=== PATIENT | female | born 1995 | race Two or more races ===

== ENCOUNTER 2016-11-16 11:18 | Inpatient (IN) | payer OTHER ==
[~2016-11-16] VITALS: Ht 162.6 cm; Wt 70.9 kg
[~2016-11-16 11:18] MED LIST: OXYTOCIN 30 UNITS/LR 500 ML BAG IV ONE; PREN-39 PO
[2016-11-16] MEDS ORDERED: LACTATED RINGER'S 1,000 ML IV SCH (11:35)
[2016-11-16 11:40] VITALS: BP 134/81; PULSE 75; RESP 16; Ht 162.6 cm; Wt 70.9 kg
[2016-11-16] MEDS ORDERED: METHYLERGONOVINE 0.2 MG INJ IM PRN ×2 (12:00→20:30)
[2016-11-16] MEDS ORDERED: MISOPROSTOL 200 MCG TAB PR PRN ×2 (12:00→20:30)
[2016-11-16] MEDS ORDERED: OXYTOCIN 30 UNITS/LR 500 ML IV PRN ×2 (12:00→20:30)
[2016-11-16] MEDS ORDERED: CARBOPROST 250 MCG INJ IM PRN ×2 (12:00→20:30)
[2016-11-16] MEDS ORDERED: CEFAZOLIN 2 GM/50 ML (PMX) 50 ML IVPB SCH (12:00)
[2016-11-16 12:19] LABS: ADD SCAN DIFF NO
[2016-11-16 12:43] LABS: BASOPHILS % 0.3 % (0.0-2.0); EOSINOPHILS # 0.1 10^3/ul (0.0-0.5); EOSINOPHILS % 0.4 % (0.0-7.0); HEMATOCRIT 37.9 % (37.0-47.0); HEMOGLOBIN 12.3 g/dl (12.0-16.0); INR 0.97; LYMPHOCYTES # 2.2 10^3/ul (0.8-2.9); MEAN CORPUSCULAR HEMOGLOBIN 29.3 pg (29.0-33.0); MEAN CORPUSCULAR HGB CONC 32.5 g/dl (32.0-37.0); MEAN CORPUSCULAR VOLUME 90.2 fl (82.0-101.0); MEAN PLATELET VOLUME 12.4 fl (7.4-10.4); MONOCYTE # 0.8 10^3/ul (0.3-0.9); MONOCYTES % 7.4 % (0.0-11.0); NEUTROPHILS % 71.2 % (39.0-77.0); PLATELET COUNT 164 10^3/UL (140-415); PROTIME 12.9 Sec (12.2-14.2); RED CELL DISTRIBUTION WIDTH 14.6 % (11.5-14.5); WHITE BLOOD COUNT 11.2 10^3/ul (4.8-10.8)
[2016-11-16 12:48] LABS: PARTIAL THROMBOPLASTIN TIME 26.5 Sec (25.0-35.0)
[2016-11-16] MEDS ORDERED: ONDANSETRON 4 MG INJ IV STA (14:20)
[2016-11-16] MEDS ORDERED: CITRIC ACID/SODIUM CITRATE 15 ML CUP PO ONE (14:30)
[2016-11-16] MEDS ORDERED: DEXAMETHASONE 4 MG/ML 1 ML INJ ONE (15:30)
[2016-11-16] MEDS ORDERED: OXYTOCIN 10 UNIT INJ ONE (15:30)
[2016-11-16] MEDS ORDERED: METOCLOPRAMIDE 10 MG INJ ONE (15:30)
[2016-11-16] MEDS ORDERED: KETOROLAC 30 MG INJ ONE (15:30)
[2016-11-16] MEDS ORDERED: morphine SULFATE/PF (10 MG/10 ML) INJ ONE (15:30)
[2016-11-16] MEDS ORDERED: ONDANSETRON 4 MG INJ ONE (15:30)
[2016-11-16] MEDS ORDERED: PHENYLephrine (100 MCG/ML) 5ML SYG ONE (15:30)
[2016-11-16] MEDS ORDERED: NALBUPHINE HCL (10 MG/1 ML) INJ IV PRN (16:00)
[2016-11-16] MEDS ORDERED: ONDANSETRON 4 MG INJ IV PRN (16:00)
[2016-11-16] MEDS ORDERED: morphine 4 MG/ML VIAL IV PRN (16:00)
[2016-11-16] MEDS ORDERED: HYDROCODONE/APAP (5/325) TAB PO PRN (16:00)
[2016-11-16] MEDS ORDERED: HYDROmorphONE 1 MG/ML SYG IV PRN ×2 (16:00)
[2016-11-16] MEDS ORDERED: ACETAMINOPHEN 500 MG TAB PO PRN (16:00)
[2016-11-16] MEDS ORDERED: morphine 2 MG INJ IV PRN (16:00)
[2016-11-16] MEDS ORDERED: NALOXONE (0.4 MG/ML) INJ IV PRN (16:00)
[2016-11-16] MEDS ORDERED: DIPHENHYDRAMINE 50 MG INJ IV PRN (16:00)
[2016-11-16] MEDS: OXYTOCIN 30 UNITS/LR 500 ML IV SCH ×4 (17:02→23:43)
--- NOTE | 2016-11-16 19:04 | HP ---
Date/Time of Note Date/Time of Note DATE: 11/16/16 TIME: 18:40 OB - History Hx of Present Free Text/Dictation 21 years old white female T2 PT is SAB baby L admitted to [facility] at 39 weeks with history of previous in early labor being prepared to undergo repeat section This patient has been under the care of the [facility] medical group course was not complicated with gestational diabetes -induced hypertension or any other serious surgical or medical condition [employer]AM[employer]ER history [facility] at the age 11 history of2 previous section , first baby had multiple congenital anomaly did not survive and delivery was performed by section her following normal baby delivered by repeat , recent she has been seen multiple occasion by the perinatologist old reports indicated normal baby and normal Chief Complaint: 39 weeks history of previous Estimated Due Date: Nov 23, 2016 : 4 Para: 2 Spontaneous : 1 Ultrasounds: Normal mid trimester US Obstetrical Complications: None Medical Complications: None Past Family/Social History * Past Medical, Surgical, Family and Obstetric Histories reviewed from chart. Rubella: immune RPR/VDRL: Negative GBS Status: Negative OB Admission Exam Vital Signs Vital Signs Vital Signs Date Time Temp Pulse Resp B/P Pulse Ox O2 Delivery O2 Flow Rate FiO2 11/16/16 11:40 98.0 75 16 134/81 Physical Exam HEENT: WNL Heart: Rhythm Normal Lungs: Clear, Equal Abdomen: WNL Extremities: Normal Reflexes: Normal Effacement: 0% Membranes: Intact Heart Rate: 120's Decelerations: No Decelerations Varibility: Moderate Contractions on Admission: >10 Minutes Apart Intensity: Mild Last 72 hours Lab Results CBC & BMP 11/16/16 12:00 OB Assessment/Plan Reason for admission: other (39 weeks history of 2 previous ,) Plan: Section, Other (Repeat ) BISHOP LUCAS MD November 16, 2016 18:58
[2016-11-16] MEDS: KETOROLAC 30 MG INJ IV PRN (19:46)
[2016-11-16] MEDS ORDERED: ACETAMINOPHEN/CODEINE #3 TAB PO PRN ×2 (20:30)
[2016-11-16] MEDS ORDERED: LANOLIN 7 GM TUBE TOP PRN (20:30)
[2016-11-16] MEDS ORDERED: CEFAZOLIN 1 GM/50 ML (PMX) 50 ML IVPB SCH (20:30)
[2016-11-16] MEDS ORDERED: OXYCODONE/ACETAMINOPHEN (5/325) TAB PO PRN ×2 (20:30)
--- NOTE | 2016-11-16 20:50 | OPR ---
DATE OF OPERATION: 11/16/2016 PREOPERATIVE DIAGNOSES: 1. Intrauterine at 39 weeks' gestation. 2. History of 2 previous sections. POSTOPERATIVE DIAGNOSES: 1. Intrauterine at 39 weeks' gestation. 2. History of 2 previous sections. OPERATION PERFORMED: Repeat transverse low-cervical section. SURGEON: Bishop Lucas MD AUTOMOTIVE WORKER: Fabricio Donald MD ANESTHESIA: Spinal. ANESTHESIOLOGIST: Julito De Los Santos MD FINDINGS: Live baby boy, 8 and 9. Baby weighed 3030 grams, equal to 6 pounds 11 ounces. DETAILS OF THE PROCEDURE: Under satisfactory spinal anesthesia, the patient was prepped and draped, and placed in supine position, tilted to the left. Pfannenstiel incision was made, carried through the subcutaneous tissue. Bleeders brought under control with electrocautery. Fascia incised to th e length of the incision. Rectus muscle divided in midline. Peritoneum exposed and entered through the transverse incision. Exploration of abdomen revealed a gravid uterus, normal-appearing tubes a nd ovaries, extremely thinned out lower segment of the uterus. Bladder flap was developed. Transve rse incision was made in the lower segment of the uterus. Amniotic sac ruptured. Clear amniotic fl uid noted. Live baby boy was delivered from unengaged vertex. Nasal oropharyngeal suction was perf ormed. Baby handed to the team for immediate attention It is rather important to mention that the baby had a nuchal cord x2 tight around the neck. Uterine cavity cleaned with wet sponge and drainage established. Uterus closed in 2 layers using Monocryl #1 in continuous fashion. Peritoneal cavity irrigated with warm saline. Sponge, needle, and instru ment reported to be correct. Abdominal peritoneum closed with 2-0 chromic catgut continuously. Rec tus muscle approximated with 2 interrupted 2-0 chromic catgut. Fascia closed with #1 PDS in a jesus nuous fashion. Subcutaneous tissue approximated with interrupted 2-0 chromic catgut. Skin closed w ith benny. Estimated blood loss: 600 mL. Urine bag contained 200 mL of clear urine. Patient to lerated procedure well, transferred to recovery room in a good condition. Dictated By: BISHOP LUCAS MD HF/NTS Conf#: [id number] DID#: [id number]
[2016-11-16] MEDS: SENNA/DOCUSATE NA (8.6MG/50MG) TAB PO SCH (21:00)
[2016-11-16 21:10] VITALS: BP 131/72; PULSE 80; RESP 18
[2016-11-16 21:40] VITALS: BP 122/70; PULSE 78
[2016-11-17 00:30] VITALS: BP 127/70; PULSE 75; RESP 18
[2016-11-17] MEDS: OXYTOCIN 30 UNITS/LR 500 ML IV SCH ×5 (04:03→20:17)
[2016-11-17 04:30] VITALS: BP 110/60; PULSE 72; RESP 19
--- NOTE | 2016-11-17 06:57 | OPPN ---
Date/Time of Note Date/Time of Note DATE: 11/17/16 TIME: 06:57 Post-Anesthesia Notes Post-Anesthesia Note Last documented vital signs Vital Signs Date Time Temp Pulse Resp B/P Pulse Ox O2 Delivery O2 Flow Rate FiO2 11/17/16 05:21 94 21 11/17/16 04:30 98.2 72 19 110/60 Room Air Activity: WNL Respiratory function: WNL Cardiovascular function: WNL Mental status: Baseline Pain reasonably controlled: Yes Hydration appropriate: Yes Nausea/Vomiting absent: Yes JULISSA HOANG MD November 17, 2016 06:57
[2016-11-17 08:00] VITALS: BP 116/66; PULSE 86; RESP 16
[2016-11-17 08:44] LABS: ADD SCAN DIFF NO
[2016-11-17] MEDS: SENNA/DOCUSATE NA (8.6MG/50MG) TAB PO SCH ×2 (08:47→21:27)
[2016-11-17 09:22] LABS: BASOPHILS % 0.1 % (0.0-2.0); EOSINOPHILS % 0.1 % (0.0-7.0); HEMATOCRIT 33.9 % (37.0-47.0); HEMOGLOBIN 11.2 g/dl (12.0-16.0); LYMPHOCYTES # 2.4 10^3/ul (0.8-2.9); LYMPHOCYTES % 15.9 % (15.0-51.0); MEAN CORPUSCULAR HEMOGLOBIN 29.3 pg (29.0-33.0); MEAN CORPUSCULAR VOLUME 88.7 fl (82.0-101.0); MEAN PLATELET VOLUME 12.9 fl (7.4-10.4); MONOCYTES % 6.9 % (0.0-11.0); NEUTROPHIL # 11.5 10^3/ul (1.6-7.5); NEUTROPHILS % 76.5 % (39.0-77.0); PLATELET COUNT 154 10^3/UL (140-415); RED BLOOD COUNT 3.82 10^6/ul (4.20-5.40); RED CELL DISTRIBUTION WIDTH 13.9 % (11.5-14.5)
[2016-11-17] MEDS: KETOROLAC 30 MG INJ IV PRN (10:52)
[2016-11-17 12:23] VITALS: BP 114/66; PULSE 83; RESP 16
--- NOTE | 2016-11-17 16:01 | PN ---
Date/Time of Note Date/Time of Note DATE: 11/17/16 TIME: 16:00 OB Subjective Subjective Subjective Post repeat day 1 Afebrile enedelia signs are stable abdomen soft uterus firm lochia normal bowel sounds present extremities normal ambulation encouraged diet advanced BISHOP LUCAS MD November 17, 2016 16:01
[2016-11-17 16:43] VITALS: BP 129/73; PULSE 85; RESP 16
[2016-11-17] MEDS: IBUPROFEN 600 MG TAB PO SCH ×2 (18:29→23:22)
[2016-11-17 20:00] VITALS: BP 120/64; PULSE 74; RESP 20
[2016-11-18] MEDS: OXYTOCIN 30 UNITS/LR 500 ML IV SCH ×6 (00:17→20:17)
[2016-11-18 03:24] VITALS: BP 122/65; PULSE 75; RESP 20
[2016-11-18] MEDS: IBUPROFEN 600 MG TAB PO SCH ×4 (05:17→23:22)
[2016-11-18 08:25] VITALS: BP 111/65; PULSE 72; RESP 19
[2016-11-18] MEDS: SENNA/DOCUSATE NA (8.6MG/50MG) TAB PO SCH ×2 (09:31→21:21)
--- NOTE | 2016-11-18 16:49 | PN ---
Date/Time of Note Date/Time of Note DATE: 11/18/16 TIME: 16:46 OB Subjective Subjective Subjective Post day 2 Afebrile vital signs stable complaining of cough lungs clear to P&A, cough medication ordered(Sonya TOUSSAINT) abdomen soft mildly distended incision dry bowel sounds present lochia moderate extremities normal ambulation encouraged, fleets enema recommended BISHOP LUCAS MD November 18, 2016 16:49
[2016-11-18] MEDS ORDERED: GUAIFENESIN/CODEINE 5ML CUP PO PRN (17:00)
[2016-11-18 17:12] VITALS: BP 127/76; PULSE 80; RESP 20
[2016-11-18 20:00] VITALS: BP 129/77; PULSE 77; RESP 20
[2016-11-19] MEDS: OXYTOCIN 30 UNITS/LR 500 ML IV SCH ×4 (00:17→12:17)
[2016-11-19 04:12] VITALS: BP 125/64; PULSE 74; RESP 20
[2016-11-19] MEDS: IBUPROFEN 600 MG TAB PO SCH ×2 (05:38→12:05)
[2016-11-19 07:19] LABS: ADD SCAN DIFF NO
[2016-11-19 07:30] LABS: BASOPHILS % 0.3 % (0.0-2.0); EOSINOPHILS # 0.3 10^3/ul (0.0-0.5); EOSINOPHILS % 2.9 % (0.0-7.0); HEMATOCRIT 33.5 % (37.0-47.0); HEMOGLOBIN 10.9 g/dl (12.0-16.0); LYMPHOCYTES # 2.3 10^3/ul (0.8-2.9); LYMPHOCYTES % 24.3 % (15.0-51.0); MEAN CORPUSCULAR HEMOGLOBIN 29.2 pg (29.0-33.0); MEAN CORPUSCULAR HGB CONC 32.5 g/dl (32.0-37.0); MEAN CORPUSCULAR VOLUME 89.8 fl (82.0-101.0); MEAN PLATELET VOLUME 11.9 fl (7.4-10.4); MONOCYTE # 0.7 10^3/ul (0.3-0.9); MONOCYTES % 7.9 % (0.0-11.0); NEUTROPHILS % 64.2 % (39.0-77.0); PLATELET COUNT 166 10^3/UL (140-415); RED BLOOD COUNT 3.73 10^6/ul (4.20-5.40); RED CELL DISTRIBUTION WIDTH 14.4 % (11.5-14.5); WHITE BLOOD COUNT 9.4 10^3/ul (4.8-10.8)
[2016-11-19 07:45] VITALS: BP 117/58; RESP 19
[2016-11-19] MEDS ORDERED: DIPHTH/TET/ACEL PERTUSS (ADULT) 0.5 ML VIAL IM* ONE (09:00)
[2016-11-19] MEDS: SENNA/DOCUSATE NA (8.6MG/50MG) TAB PO SCH (10:49)
--- NOTE | 2016-11-19 12:06 | DS ---
Date/Time of Note Date/Time of Note DATE: 11/19/16 TIME: 12:02 Discharge Summary Admission/Discharge Info Admit Date/Time November 16, 2016 at 11:18 Discharge Date/Time November 19, 2016 at 1201 Final Diagnosis Date 3 post repeat Patient Condition: Good Procedures Repeat Hx of Present Illness Term history of previous admitted at 39 weeks gestation for repeat section Hospital Course Satisfactory uneventful Home Meds Reported Medications Vits W-Ca,Fe,Fa(<1MG) ( Vitamins) 1 Tab Tablet, 1 TAB PO DAILY 05/25/13 Follow-up Plan instructions given recommended to make appointment in 4 days to be seen at the office for staple removal and follow-up check Primary Care Provider [facility] Time spent on discharge: < 30 minutes Pending Labs Laboratory Tests Test 11/19/16 06:37 White Blood Count 9.410^3/ul (4.8-10.8) Red Blood Count 3.7310^6/ul (4.20-5.40) Hemoglobin 10.9g/dl (12.0-16.0) Hematocrit 33.5% (37.0-47.0) Mean Corpuscular Volume 89.8fl (82.0-101.0) Mean Corpuscular Hemoglobin 29.2pg (29.0-33.0) Mean Corpuscular Hemoglobin Concent 32.5g/dl (32.0-37.0) Red Cell Distribution Width 14.4% (11.5-14.5) Platelet Count 26378^3/UL (140-415) Mean Platelet Volume 11.9fl (7.4-10.4) Neutrophils % 64.2% (39.0-77.0) Lymphocytes % 24.3% (15.0-51.0) Monocytes % 7.9% (0.0-11.0) Eosinophils % 2.9% (0.0-7.0) Basophils % 0.3% (0.0-2.0) Nucleated Red Blood Cells % 0.0/100WBC (0.0-0.0) Neutrophils # 6.010^3/ul (1.6-7.5) Lymphocytes # 2.310^3/ul (0.8-2.9) Monocytes # 0.710^3/ul (0.3-0.9) Eosinophils # 0.310^3/ul (0.0-0.5) Basophils # 0.010^3/ul (0.0-0.1) Nucleated Red Blood Cells # 0.010^3/ul (0.0-0.0) BISHOP LUCAS MD November 19, 2016 12:06
== END 2016-11-19 18:00 | disposition home or self-care (01) | DRG 766 ==
LOC: L-D 11:18 → PP1 21:00
PROVIDERS: ADMIT Obstetrics & Gynecology; ATTEND Obstetrics & Gynecology
PROC: 10D00Z1 Extraction of Products of Conception, Low, Open Approach (ICD-10-PCS; principal; 2016-11-16 14:00)
DX: O34.211 Maternal care for low transverse scar from previous cesarean delivery (principal); O69.1XX0 Labor and delivery complicated by cord around neck, with compression, not applicable or unspecified; Z3A.39 39 weeks gestation of pregnancy; Z37.0 Single live birth
CPT/HCPCS: 85025; 85610; 85730; 86592; 86850; 86900; 86901; 87340; 90715; 94760; 99464; J0690; J1100; J1885; J2274; J2370; J2405; J2590; J2765; J7120